=== PATIENT | female | born 1950 | race Caucasian/White ===

== ENCOUNTER 2018-02-04 11:33 | Emergency (ER) | payer BC ==
[2018-02-04] MEDS ORDERED: NS 1,000 ML IV ONE (11:59)
[2018-02-04] MEDS ORDERED: fentaNYL 100 MCG/2 ML INJ IVP ONE (11:59)
[2018-02-04] MEDS ORDERED: ONDANSETRON 4 MG/2 ML VIAL IVP ONE (11:59)
--- NOTE | 2018-02-04 12:02 | EDPHY ---
H & P Stated Complaint: abd pain since 0600 pain generalized . n/v No Bm today Time Seen by Provider: 02/04/18 11:44 HPI/ROS: Chief Complaint: Abdominal pain HPI: 67-year-old woman with a history of recurrent abdominal pain woke this morning at 6:00 a.m. With 6/10 central crampy abdominal pain similar to her prior episodes. She actually had a cholecystectomy in September in an attempt to alleviate these symptoms. She has had 2 attacks since that time but has not required going to the hospital. She is currently visiting from [place]. Has had some nausea vomiting. She has also had some diarrhea recently and did take a loperamide this morning in anticipation of getting on an airplane. No history of bowel obstructions in the past. She has had a partial nephrectomy and bilateral salpingectomy in the past as well. Has had some nausea and vomiting. No blood or coffee-ground emesis. No dark black tarry stools or blood in her stool. No fevers or chills. There are no aggravating or alleviating factors. She says in the past John has house but has not helped this time. ROS: 10 point Review of Systems is negative except as noted in the HPI. 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 Social History: No smoking, no alcohol, no recreational drug use Family History: non-contributory Physical Exam: Gen: Awake, Alert, No Distress HEENT: Nose: no rhinorrhea Eyes: PERRLA, EOMI Mouth: Moist mucosa Neck: Supple, no JVD Chest: nontender, lungs clear to auscultation Heart: S1, S2 normal, no murmur Abd: Soft, very mild epigastric tenderness, no guarding Back: no CVA tenderness, no midline tenderness Ext: no edema, non-tender Skin: no rash Neuro: CN II-XII intact, Sensation grossly intact, Strength 5/5 in bilateral upper and lower extremities - Personal History Current Tetanus/Diphtheria Vaccine: Unsure Current Tetanus Diphtheria and Acellular Pertussis (TDAP): Unsure - Medical/Surgical History Other PMH: GB. Kidney surgery Right removal. Lumpectomy breast. Fallopian tubes removed - Social History Smoking Status: Former smoker Constitutional: Initial Vital Signs Temperature (C) 36.9 C 02/04/18 11:39 Heart Rate 80 02/04/18 11:39 Respiratory Rate 16 02/04/18 11:39 Blood Pressure 143/81 H 02/04/18 11:39 O2 Sat (%) 98 02/04/18 11:39 O2 Delivery Mode Room Air O2 (L/minute) 1 Allergies/Adverse Reactions: No Known Allergies Allergy (Unverified 02/04/18 11:46) Home Medications: Medication Instructions Recorded Carafate 1 GM (*) 02/04/18 Lumigan 0.01% (*) 02/04/18 Ondansetron Odt [Zofran Odt 4 mg 4 mg PO Q4 PRN #10 tab 02/04/18 (*)] Timolol 0.25% 02/04/18 Medical Decision Making - Diagnostics Imaging Results: Imaging Impressions Abdomen X-Ray 02/04/18 12:00 Impression: 1.No acute findings. 2. Possible 4 mm right renal calcification. ED Course/Re-evaluation: Patient's pain is now resolved. She has a soft benign abdomen. This is after 25 mcg of fentanyl and ondansetron and fluids. Laboratory evaluations are unremarkable. No evidence of acute surgical intra-abdominal process. Will discharge with prescription for Zofran. She will follow up with primary care physician when she returns home to [place] later this week. - Data Points Laboratory Results: 02/04/18 02/04/18 12:04 11:55 POC Sodium 139 mEq/L mEq/L (135-145) POC Potassium 3.9 mEq/L mEq/L (3.3-5.0) POC Chloride 107.0 mEq/L mEq/L (97-110) POC Total CO2 23 mEq/L mEq/L (22-31) POC BUN 11 mg/dL mg/dL (7-23) POC Creatinine 0.5 mg/dL L mg/dL (0.6-1.0) POC Glucose 124 mg/dL H mg/dL (70-100) POC Calcium 9.4 mg/dL mg/dL (8.5-10.4) POC Total Bilirubin 0.8 mg/dL mg/dL (0.1-1.4) POC AST 20 IU/L IU/L (14-46) POC ALT 13 IU/L IU/L (9-52) POC Alk Phosphatase 78 IU/L IU/L (38-126) POC Total Protein 7.0 g/dL g/dL (6.3-8.2) POC Albumin 3.9 g/dL g/dL (3.5-5.0) Lipase 47 IU/L IU/L (23-300) Medications Given: Discontinued Medications Fentanyl (Sublimaze) 25 mcg IVP EDNOW ONE Stop: 02/04/18 12:00 Last Admin: 02/04/18 12:23 Dose: 25 mcg Sodium Chloride (Ns) 1,000 mls @ 0 mls/hr IV ONCE ONE; Wide Open PRN Reason: Protocol Stop: 02/04/18 12:00 Last Admin: 02/04/18 12:23 Dose: 1,000 mls Ondansetron HCl (Zofran) 4 mg IVP EDNOW ONE Stop: 02/04/18 12:00 Last Admin: 02/04/18 12:24 Dose: 4 mg Point of Care Test Results: CBC CBC Collection Date 02/04/18 CBC Collection Time 11:55 WBC 10.1 RBC 4.72 HGB 13.8 HCT 42.1 PLT 296 Neut # 8.5 Neut 84.1 LYMPH # 1.2 LYMPH 12.0 Other WBC # 0.4 Other WBC 3.9 MCV 89.2 Chemistry 02/04/18 12:04 POC Sodium 139 mEq/L mEq/L (135-145) POC Potassium 3.9 mEq/L mEq/L (3.3-5.0) POC Chloride 107.0 mEq/L mEq/L (97-110) POC Total CO2 23 mEq/L mEq/L (22-31) POC BUN 11 mg/dL mg/dL (7-23) POC Creatinine 0.5 mg/dL L mg/dL (0.6-1.0) POC Glucose 124 mg/dL H mg/dL (70-100) POC Calcium 9.4 mg/dL mg/dL (8.5-10.4) POC Total Bilirubin 0.8 mg/dL mg/dL (0.1-1.4) POC AST 20 IU/L IU/L (14-46) POC ALT 13 IU/L IU/L (9-52) POC Alk Phosphatase 78 IU/L IU/L (38-126) POC Total Protein 7.0 g/dL g/dL (6.3-8.2) POC Albumin 3.9 g/dL g/dL (3.5-5.0) Urine Dip Collection Date 02/04/18 Collection Time 12:15 Specific [place] (1.002-1.030) 1.020 PH (5.0-7.5) 7.0 Leukocytes (Negative) Negative Nitrites (Negative) Negative Protein (Negative) Trace Glucose (Negative) Negative Ketones (Negative) 2+ Urobilnogen (0.2-1.0 EU) 0.2 Bilirubin (Negative) Negative Blood (Negative) Trace Departure - Departure Disposition: Home, Routine, Self-Care Clinical Impression: Abdominal pain Condition: Good Instructions: Abdominal Pain (ED) Additional Instructions: Follow up with primary care physician in 3-4 days for further evaluation. Return to the emergency department for worsening pain, fevers or chills, uncontrolled nausea vomiting, or any other concerns. Referrals: NONE *PRIMARY CARE P,. [Primary Care Provider] - As per Instructions Prescriptions: Ondansetron Odt [Zofran Odt 4 mg (*)] 4 mg PO Q4 PRN #10 tab PRN Reason: nausea
[2018-02-04 13:48] VITALS: BP 139/77
== END 2018-02-04 13:45 | disposition home or self-care (01) ==
LOC: CED 11:33
DX: R10.13 Epigastric pain (principal); E86.9 Volume depletion, unspecified; Z87.891 Personal history of nicotine dependence; Z90.49 Acquired absence of other specified parts of digestive tract
CPT/HCPCS: 74019-PO; 80053-PO; 96374; J2405; J3010